=== PATIENT | male | born 1945 | race Caucasian/White ===

== ENCOUNTER 2016-12-20 15:13 | Inpatient (IN) | payer OTHER, MEDICARE ==
--- NOTE | 2016-12-20 15:16 | EDPHY ---
H & P HPI/ROS: HPI CHIEF COMPLAINT: COPD exacerbation, altered mental status HISTORY OF PRESENT ILLNESS: Patient is 71-year-old male, COPD baseline oxygen requirement 2 L at home, for the past few days he has had increasing shortness of breath cough, generalized weakness and worsening confusion. His partner brought him to see his primary care doctor up stairs at [facility]. He was seen by Dr. Chen and referred to the emergency room. Upon arrival to the emergency room this patient is in respiratory distress he is breathing 30-40 times per minute he has a low O2 Sat on 2 L nasal cannula of 79% . He has audible wheezing and audible crackles and rhonchi throughout all lung dove. He appears to be confused and globally weak. He reports generalized weakness and confusion worsening over the past 48-72 hours. His partner at bedside states that he has been sick worse over the past week. Past Medical History: Significant past medical history for COPD, obstructive sleep apnea, history of GI bleed, chronic hyponatremia, depression Past Surgical History: Hip surgery Social History: No use drugs alcohol tobacco products. Family History: Noncontributory ROS REVIEW OF SYSTEMS: A comprehensive 10 point review of systems is otherwise negative aside from elements mentioned in the history of present illness. Exam Constitutional respiratory distress, tachypneic, appears ill, triage nursing summary reviewed, vital signs reviewed, awake/alert. Eyes normal conjunctivae and sclera, EOMI, PERRLA. HENT normal inspection, atraumatic, moist mucus membranes, no epistaxis, neck supple/ no meningismus, no raccoon eyes. Respiratory tachypnea, audible wheezing audible crackles audible rhonchi, respiratory distress Cardiovascular rate normal, regular rhythm, no murmur, no edema, distal pulses normal. Gastrointestinal soft, non-tender, no rebound, no guarding, normal bowel sounds, no distension, no pulsatile mass. Genitourinary no CVA tenderness. Musculoskeletal no midline vertebral tenderness, full range of motion, no calf swelling, no tenderness of extremities, no meningismus, good pulses, neurovascularly intact. Skin pink, warm, & dry, no rash, skin atraumatic. Neurologic awake, alert and oriented x 3, AAOx3, moves all 4 extremities equally, motor intact, sensory intact, CN II-XII intact, normal cerebellar, normal vision, normal speech. Globally weak. Psychiatric normal mood/affect. Heme/Lymph/Immune no lymphadenopathy. 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 ABG. Re-evaluation: ED x-ray chest one view: This shows a prolonged lung dove. Rather right upper lobe large blood. Significant emphysematous changes of the lung. And haziness concerning for pneumonia right upper lobe right middle lobe. Image interpreted myself. 1602: Patient is doing better after DuoNeb breathing treatment IV Solu-Medrol. IV Rocephin, azithromycin, IV fluids has been ordered. Patient getting a continuous 10 mg albuterol neb at this time. Hemodynamically stable. I did speak with Dr. Glass get this time 4:02 p.m.. For admission to [facility]. Patient be admitted to step-down unit/ICU Reason for admission COPD exacerbation, respiratory distress, altered mental status Critical Care: Total Critical Care Time Spent Managing this Patient: 65 Minutes. This time was spent Exclusively with this patient. This Care was exclusive of procedures. The Organ System/life at risk was pulmonary, respiratory distress, COPD exacerbation, hypoxia This Patient was in Critical Condition because respiratory distress, COPD exacerbation, hypoxia 1614: This patient appears to be doing worse. Increasing respiratory rate to 40. Despite breathing treatments and steroids. I have called for an emergent ambulance to bring him by ambulance to [facility] inpatient ICU. I believe he stable enough to go to ICU at [facility]. His partner at bedside consents for this. Consents for transfer to ICU. 1617: [facility] ambulance called this time. Patient is hemodynamically stable awake , talking to me. Still tachypneic. Getting continuous DuoNeb. Current vital signs: Blood pressure 151/98. 94% on 5 L nasal cannula. Heart rate 82. EKG interpretation by me on record in redIT system. Impression time of EKG 16 14 this is sinus rhythm rate of [address] do not appreciate [address] elevation or significant ST depression. 1628: Patient is getting continuous breathing treatment at this time. Resting comfortably. Vital signs stable. 1633: I did re-evaluate the patient at this time. Drink in his breathing treatment this time. Feels okay. Answers my questions appropriately. 1635: [facility] here for transfer. Stable. Transfer to ICU. Of note this patient was aggressively resuscitated here in the emergency room. He received multiple DuoNeb breathing treatments a continuous neb breathing treatments. IV fluid bolus. Broad-spectrum antibiotics. Chest x-ray, blood cultures steroids. He seemed to do okay on a continuous nebulizer. If he did have any worsening symptoms increasing respiratory rate or appear to be impending respiratory failure he would be intubated however he was stable enough to be transferred from [facility] Emergency room to the ICU as a direct admission. Source: Patient - Personal History Tetanus Vaccine Date: 06/22 - Medical/Surgical History Hx Asthma: Yes Hx Chronic Respiratory Disease: Yes Hx Diabetes: No Hx Cardiac Disease: No Hx Renal Disease: No Hx Cirrhosis: No Hx Alcoholism: No Hx HIV/AIDS: No Hx Splenectomy or Spleen Trauma: No Other PMH: med hx-copd. surg- low thyroid, essential tremors - Social History Smoking Status: Current every day smoker Constitutional: Initial Vital Signs Temperature (C) 35.7 C L 12/20/16 15:13 Heart Rate 86 12/20/16 15:13 Respiratory Rate 24 H 12/20/16 15:13 Blood Pressure 157/82 H 12/20/16 15:13 O2 Sat (%) 85 L 12/20/16 15:13 O2 Delivery Mode Nasal Cannula O2 (L/minute) 5 Allergies/Adverse Reactions: venom-wasp [Wasp Venom] Allergy (Unknown, Verified 05/17/14 14:10) Home Medications: Medication Instructions Recorded Aspirin [Aspirin 81mg (*)] 81 mg PO DAILY 09/06/11 Docusate Sodium [Dulcolax Stool 100 mg PO DAILY PRN 09/06/11 Softener] Levothyroxine [Synthroid 75 mcg 75 mcg PO DAILY06 09/06/11 (*)] Propranolol HCl [Inderal 10mg (*)] 10 mg PO DAILY 09/06/11 buPROPion SR [Wellbutrin 150mg SR 300 mg PO DAILY 04/24/13 (*)] Albuterol [Proventil Neb] 3 ml IH Q4 PRN #1 deyvial 01/06/15 Fluticasone/Salmeter 500/50Mcg 1 puffs IH BID #1 disk 03/18/14 [Advair 500/50 (*)] Ipratropium/Albuterol [Combivent 2 inh IH BID PRN 05/17/14 Respimat Inhal Bond(*)] Hydrocodone/APAP 5/325 [[place] 2 tab PO Q4 PRN #30 tab 05/30/14 5/325 (*)] LORazepam [Ativan (*)] 0.5 mg PO Q4 PRN #30 tab 05/30/14 Nicotine [Nicoderm Cq 14 mg (*)] 14 mg TD DAILY #30 patch 05/30/14 Pantoprazole Sodium [Protonix 40mg 40 mg PO DAILY #30 tab 05/30/14 (*)] Phenol/Eucalyptus Oil/Menthol 1 ea PO PRN PRN #30 lozenge 05/30/14 [Cepastat Lozenge] Voriconazole [Vfend 200MG (*)] 200 mg PO BID@1000,2200 #0 tab 05/30/14 Zolpidem Tartrate [Ambien 5MG (*)] 5 - 10 mg PO HS PRN #30 tab 05/30/14 guaiFENesin [Mucinex 600 MG (*)] 1,200 mg PO BID #30 tab.er 05/30/14 predniSONE 60 mg PO DAILY #0 tablet 05/30/14 Medical Decision Making - Data Points Laboratory Results: Laboratory Results 12/20/16 15:40 12/20/16 15:40 Medications Given: Albuterol (Ventolin Hfa Inhaler) 4 puffs IH Q4VENT GWYN Stop: 06/18/17 19:59 Last Admin: 12/21/16 04:35 Dose: 4 puffs Chlorhexidine Gluconate (Peridex) 15 ml PO Q12@08,20 GWYN Stop: 06/18/17 19:59 Last Admin: 12/20/16 21:02 Dose: 15 ml Dexmedetomidine HCl 400 mcg/ (Sodium Chloride) 104 mls @ 0 mls/hr IV CONT GWYN; Per Protocol PRN Reason: Protocol Stop: 06/18/17 17:59 Last Admin: 12/21/16 02:27 Dose: 104 mls Famotidine/Sodium Chloride (Pepcid 20 Mg (Premix)) 50 mls @ 200 mls/hr IV Q12HRS GWYN Stop: 06/18/17 20:59 Last Admin: 12/20/16 21:02 Dose: 50 mls Fentanyl/Sodium Chloride (Fentanyl 10 Mcg/Ml (Premix)) 100 mls @ 0 mls/hr IV CONT GWYN; Per Protocol PRN Reason: Protocol Stop: 12/30/16 17:59 Last Admin: 12/20/16 18:24 Dose: 100 mls Cefepime HCl 1 gm/ Dextrose 50 mls @ 100 mls/hr IV Q12HRS GWYN PRN Reason: Protocol Stop: 01/19/17 20:59 Last Admin: 12/20/16 21:21 Dose: 50 mls Sodium Chloride (Ns) 1,000 mls @ 75 mls/hr IV CONT GWYN Stop: 06/18/17 18:44 Last Admin: 12/21/16 02:27 Dose: 1,000 mls Ipratropium [place] (Atrovent Hfa) 4 puffs IH Q4VENT GWYN Stop: 06/18/17 19:59 Last Admin: 12/21/16 04:35 Dose: 4 puffs Methylprednisolone Sodium Succinate (Solu-Medrol) 60 mg IVP Q8HRS GWYN Stop: 06/18/17 21:59 Last Admin: 12/21/16 05:31 Dose: 60 mg Discontinued Medications Albuterol (Proventil Neb) 12 ml IH CONT ONE Stop: 12/20/16 15:36 Last Admin: 12/20/16 15:37 Dose: 12 ml Albuterol (Proventil Neb) 9 ml IH ONCE ONE Stop: 12/20/16 16:25 Last Admin: 12/20/16 16:26 Dose: 9 ml Albuterol/Ipratropium (Duoneb) 3 ml IH EDNOW ONE Stop: 12/20/16 15:25 Last Admin: 12/20/16 15:25 Dose: 3 ml Fentanyl (Sublimaze) 100 mcg IVP ONCE ONE Stop: 12/20/16 18:16 Last Admin: 12/20/16 18:23 Dose: 100 mcg Sodium Chloride (Ns) 1,000 mls @ 0 mls/hr IV EDNOW ONE; Wide Open PRN Reason: Protocol Stop: 12/20/16 15:23 Last Admin: 12/20/16 15:39 Dose: 1,000 mls Azithromycin 500 mg/ Dextrose 255 mls @ 255 mls/hr IV EDNOW ONE PRN Reason: Protocol Stop: 12/20/16 16:52 Last Admin: 12/20/16 20:02 Dose: 255 mls Ceftriaxone Sodium/Dextrose (Rocephin 1 Gm (Premix)) 50 mls @ 100 mls/hr IV EDNOW ONE PRN Reason: Protocol Stop: 12/20/16 16:22 Last Admin: 12/20/16 16:17 Dose: 50 mls Sodium Chloride (Ns) 1,000 mls @ 3,000 mls/hr IV ONCE ONE Stop: 12/20/16 19:01 Last Admin: 12/20/16 19:18 Dose: 1,000 mls Ipratropium [place] (Atrovent Hfa) 4 puffs IH Q4H GWYN Stop: 06/18/17 18:29 Last Admin: 12/20/16 18:49 Dose: Not Given Methylprednisolone Sodium Succinate (Solu-Medrol) 125 mg IVP EDNOW ONE Stop: 12/20/16 15:25 Last Admin: 12/20/16 15:39 Dose: 125 mg Midazolam HCl (Versed) 2 mg IVP ONCE ONE Stop: 12/20/16 18:16 Last Admin: 12/20/16 18:23 Dose: 2 mg Departure - Departure Disposition: [facility] Inpatient Acute Clinical Impression: COPD exacerbation, Hypoxia, Respiratory distress Pneumonia Qualifiers: Pneumonia type: due to unspecified organism Laterality: right Lung location: middle lobe of lung Qualified Code(s): J18.1 - Lobar pneumonia, unspecified organism Respiratory failure Qualifiers: Chronicity: acute Condition: Critical
[2016-12-20] MEDS ORDERED: IPRATROPIUM/ALBUTEROL 3 ML DEYVIAL ONE (15:20)
[2016-12-20] MEDS ORDERED: NS 1,000 ML IV ONE ×2 (15:22→18:42)
[2016-12-20] MEDS ORDERED: IPRATROPIUM/ALBUTEROL 3 ML DEYVIAL IH ONE (15:24)
[2016-12-20] MEDS ORDERED: methylPREDNISolone SOD SUCC 125 MG/2 ML VIAL IVP ONE (15:24)
[2016-12-20] MEDS ORDERED: ALBUTEROL 3 ML DEYVIAL ONE ×2 (15:33→16:21)
[2016-12-20] MEDS ORDERED: ALBUTEROL 3 ML DEYVIAL IH ONE ×2 (15:35→16:24)
[2016-12-20 15:50] LABS: % IMMATURE GRANULYOCYTES 0.6 % (0.0-1.1); ABSOLUTE IMMATURE GRANULOCYTES 0.07 10^3/uL (0.00-0.10); ADD DIFF? NO; ADD MORPH? NO; ADD SCAN? NO; ATYPICAL LYMPHOCYTE FLAG 0 (0-99); FRAGMENT RBC FLAG 0 (0-99); HEMATOCRIT 46.2 % (40.0-51.0); HEMOGLOBIN 14.5 g/dL (13.7-17.5); LEFT SHIFT FLG 0 (0-99); LIPEMIA HEMOLYSIS FLAG 80 (0-99); MEAN CELL HEMOGLOBIN 28.2 pg (27.9-34.1); MEAN CELL HEMOGLOBIN CONCENTR. 31.4 g/dL (32.4-36.7); MEAN CELL VOLUME 89.7 fL (81.5-99.8); MEAN PLATELET VOLUME 9.9 fL (8.7-11.7); PLATELET CLUMPS FLAG 0 (0-99); PLATELET COUNT 207 10^3/uL (150-400); RED BLOOD CELL COUNT 5.15 10^6/uL (4.40-6.38); RED CELL DISTRIBUTION WIDTH 15.9 % (11.5-15.2)
[2016-12-20] MEDS ORDERED: AZITHROMYCIN IV 500 MG in D5W 250 ML IV ONE (15:53)
[2016-12-20 16:01] LABS: INR 1.05 (0.83-1.16); PROTIME(PATIENT) 13.4 SEC (12.0-15.0)
[2016-12-20 16:02] LABS: APTT 27.9 SEC (23.0-38.0)
[2016-12-20 16:07] LABS: ALANINE AMINOTRANSFERASE 37 IU/L (21-72); ALKALINE PHOSPHATASE 60 IU/L (38-126); ASPARTATE AMINOTRANSFERASE 17 IU/L (17-59); BILIRUBIN,TOTAL 1.1 mg/dL (0.1-1.4); BILIRUBIN-CONJUGATED 0.4 mg/dL (0.0-0.5); BILIRUBIN-UNCONJUGATED 0.7 mg/dL (0.0-1.1); CHLORIDE 82 mEq/L (97-110); CREATININE 0.5 mg/dL (0.7-1.3); GLOMERULAR FILTRATION RATE > 60; GLUCOSE 134 mg/dL (70-100); MAGNESIUM 1.9 mg/dL (1.6-2.3); POTASSIUM 5.3 mEq/L (3.5-5.2); SODIUM 135 mEq/L (134-144); TOTAL PROTEIN 6.6 g/dL (6.3-8.2)
[2016-12-20 16:13] LABS: CREATINE KINASE-MB FRACTION 3.57 ng/mL (0.00-4.55)
[2016-12-20 16:20] LABS: ANION GAP 11 mEq/L (8-16); CARBON DIOXIDE 42 mEq/l (22-31)
[2016-12-20] MEDS ORDERED: AZITHROMYCIN 500 MG/5 ML VIAL IV ONE (16:21)
[2016-12-20] MEDS ORDERED: fentaNYL 100 MCG/2 ML INJ ONE (17:22)
[2016-12-20] MEDS ORDERED: MIDAZOLAM 2 MG/2 ML VIAL ONE (17:22)
[2016-12-20] MEDS ORDERED: ALTEPLASE 2 MG VIAL IVP PRN (18:09)
[2016-12-20] MEDS ORDERED: fentaNYL 100 MCG/2 ML INJ IVP ONE (18:15)
[2016-12-20] MEDS ORDERED: MIDAZOLAM 2 MG/2 ML VIAL IVP ONE (18:15)
[2016-12-20] MEDS: fentaNYL/NACL 100 ML IV SCH (18:24)
[2016-12-20] MEDS: DEXMEDETOMIDINE HCL 400 MCG in NS 100 ML IV SCH (18:24)
[2016-12-20] MEDS ORDERED: IPRATROPIUM HFA INHALER IH SCH (18:30)
[2016-12-20] MEDS ORDERED: ONDANSETRON 4 MG/2 ML VIAL IVP PRN (18:42)
--- NOTE | 2016-12-20 18:49 | GCON ---
[f rep st] CONSULTATION PULMONARY/CRITICAL CARE CONSULTATION DATE OF CONSULTATION: 12/20/2016 REFERRING PHYSICIAN: Antonio Chen MD REASON FOR REFERRAL: Evaluation and management of confusion and respiratory failure. HISTORY: The patient is a 71-year-old male with a history of severe COPD and ongoing tobacco use. He has been followed by Dr. Burns at [facility]. He has apparently been declining recently, with generalized weakness , for which physical therapy had recently been prescribed. He saw Dr. Chen today in the office with increased shortness of breath and cough since December 16. He woke up today and was more confused. He had been started on prednisone and Cipro a few days earlier by his hybrid tester. He was quite weak and confused as well as short of breath when he saw Dr. Chen today, so he was [place] [facility] [place] they [place], were unable to get a blood gas, and transferred him to the intensive care unit here. At the time I see him, he is minimally responsive and is not moving air very well. With the use of BiPAP, he is a bit more interactive but he is still not able to reliably answer questions. PAST MEDICAL HISTORY: 1. COPD, severe. Patient apparently had an FEV1 of 23% of predicted on testing done at the [facility]. 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 He is on chronic oxygen as well as ICS/LAMA/LABA therapy. I do not see any mention of recent hospitalizations in his chart, and he has no recent hospitalizations here at [facility]. 2. History of cerebral infarct in 2012. MEDICATIONS: At the time of admission, include Advair, omeprazole, prednisone, trazodone, Zoloft, Singulair, Combivent and Spiriva. ALLERGIES: Bactrim. SOCIAL HISTORY: The patient has a prior history of alcohol use. He has a long history of smoking and continues to smoke 5 cigarettes daily. FAMILY HISTORY: Unknown. REVIEW OF SYSTEMS: Unobtainable. PHYSICAL EXAMINATION: GENERAL: The patient is somnolent, but arousable. He follows some simple commands, but is also agitated at times, fidgeting with his mask. VITAL SIGNS: Blood pressure is 150/98, heart rate is 84, he is afebrile. Oxygen saturations are 98% on BiPAP with 30% BiPAP. HEENT: Normocephalic, atraumatic. No icterus. NECK: No JVD. Trachea is midline. CHEST: Decreased breath sounds bilaterally. CARDIAC: Regular rate and rhythm without murmur. ABDOMEN: Soft, nontender. Bowel sounds are present. EXTREMITIES: No clubbing, cyanosis, or edema. NEURO: The patient is confused and disoriented. He moves all 4 extremities with no gross motor weakness. LABORATORY: A white blood count is 11.9, with a hemoglobin of 14.5, platelet count is 207. A chemistry group shows a sodium 135 with a potassium of 5.3, carbon dioxide level is 42; this was in the 20s on his last check in 2016. A creatinine is 0.5, BNP is 301. An arterial blood gas shows a pH of 7.27, PO2 223, PCO2 88, HCO3 39. IMAGING: A chest x-ray shows chronic changes and biapical severe bullous disease with tracheal deviation to the right and some fibrosis in the right upper lobe. These are essentially unchanged from prior chest x-rays. Images were reviewed. ASSESSMENT: 1. Chronic obstructive pulmonary disease exacerbation. The patient likely has acute on chronic hypoxemic respiratory failure with a markedly elevated bicarbonate level. We have been unable to get an arterial blood gas. The patient is somnolent and is moving air very poorly, with increased but fairly ineffectual respiratory efforts, despite the use of BiPAP. I think he will require intubation and mechanical ventilation. The cause of his exacerbation is unclear. He does not have any discrete focal infiltrates or evidence of congestive heart failure. He apparently did not give a history of fever to Dr. Chen. Nonetheless, acute viral or bacterial bronchitis, influenza or pneumonia are all possibilities. He is at some risk for resistant organisms, given his chronic lung disease, but it does not appear that he has had anything more than Keflex for an antibiotic recently, until he just got Cipro over the last few days. 2. Severe chronic obstructive pulmonary disease. 3. Ongoing tobacco abuse. RECOMMENDATIONS: Plan to intubate the patient. I will attempt to obtain cultures. Also, get blood cultures. He apparently received ceftriaxone and azithromycin, and I will change the ceftriaxone to cefepime. A PICC line will be placed. I will try to use Precedex and fentanyl for sedation in order to help allow us to wean and extubate as quickly as possible. /[id number]/MODL MTDD
--- NOTE | 2016-12-20 19:24 | GHP ---
[f rep st] HISTORY AND PHYSICAL DATE OF ADMISSION: 12/20/2016 CHIEF COMPLAINT: Shortness of breath. HISTORY OF PRESENT ILLNESS: This is a 71-year-old man who presented with shortness of breath. He is accompanied by his partner, who provides most of the history. He is intubated when I am seeing him. He saw Dr. Chen today. He has had some increased confusion and shortness of breath. Dr. Chen sent him down to urgent care. Per his partner, he has chronic COPD, 2 L. he has been doing actually fairly well, although his PFTs, per report, were worse 3 weeks ago. Over the weekend, he got a cold that has infected other people in the house, including upper respiratory symptoms. Over the weekend, he got very dyspneic as well. He was started on prednisone and Cipro. He chronically takes Keflex 500 mg p.o. b.i.d. He got worse over the weekend, thus presented to Dr. Chen. He follows with Dr. Burns at the [facility] for pulmonology. PAST MEDICAL/SURGICAL HISTORY: 1. COPD, on 2 L chronically. He continues to smoke. 2. Chronic respiratory failure. 3. Stroke. 4. History of alcohol abuse, now in remission. 5. Chronic hyponatremia. 6. Obstructive sleep apnea. 7. GI bleed. 8. Depression. 9. Hypothyroid. 10. Right hip surgery. 11. Cataract surgery. MEDICATIONS: Please see medication reconciliation. ALLERGIES: Venom, wasp. FAMILY HISTORY: Per chart, father had a stroke. SOCIAL HISTORY: His partner is present. He still smokes. He does not drink. REVIEW OF SYSTEMS: A 10-point review of systems is conducted and is negative, except per HPI. PHYSICAL EXAM: VITAL SIGNS: Initial blood pressure 153/79, heart rate 81, respiration rate 32, saturating 98% on 5 L. GENERAL: The patient is intubated , sedated. HEENT: Shows him to have an ET tube in place. CARDIOVASCULAR: Shows him to be borderline tachycardic. There are no murmurs, rubs, or gallops. PULMONARY: Exam shows very faint lung sounds. ABDOMEN: Soft, nontender, nondistended. He does not grimace. SKIN: Exam shows no rash. : No Coker. NEUROLOGIC: Exam shows him to be intubated and sedated. PSYCHIATRIC: Exam is unobtainable. LABS: White count is 1.8. INR is 1.0. Lactate is 1.2. Chemistry shows a potassium of 5.3, chloride of 82, bicarb of 42. Creatinine is 0.5. BNP is 301. DATA: 1. Chest x-ray, which I personally viewed and interpreted, shows an ET tube in place. 2. I discussed this with Dr. Jacob. 3. I reviewed his chart. IMPRESSION/PLAN: A 71-year-old critically ill man due to respiratory failure. 1. Acute on chronic hypoxic/hypercapnic respiratory failure: Currently intubated. ABG will be drawn in about 10 minutes. Will need to adjust ventilator settings based on this. I suspect that this is due to a COPD exacerbation. He will get antibiotics for now. Procalcitonin is pending. He will also get steroids and bronchodilators. 2. Hypotension: This was quite acute post intubation. Per nurse, this improved with disconnecting his ventilator tubes, are considering breath stacking. We will follow closely. Will need to rely on Pulmonology for ventilation strategies in this complex man. 3. Hyperkalemia: This is mild. Will follow. 4. Mild leukocytosis. 5. Tobacco use: He will need to be counseled on cessation. 6. Hypothyroid, on Synthroid. 7. Venous thromboembolism risk is high. I will give him Lovenox. I spent 45 minutes of floor critical care time managing respiratory failure /[id number]/MODL MTDD
[2016-12-20 19:48] LABS: BICARBONATE 39 mEq/L (22-26); MEASURED OXYGEN SATURATION 99 % (92-95); PO2 223 mmHg (65-75)
[2016-12-20 19:51] LABS: TCO2 41 mEq/L (23-27)
[2016-12-20 19:53] LABS: PCO2 88 mmHg (34-38)
[2016-12-20 19:54] LABS: SIMV YES
[2016-12-20 19:55] LABS: PATIENT RATE 12; PRESSURE SUPPORT 7
[2016-12-20 19:56] LABS: END TIDAL CO2 57
[2016-12-20] MEDS: NS 1,000 ML IV SCH (20:38)
[2016-12-20] MEDS: IPRATROPIUM HFA INHALER IH SCH (20:41)
[2016-12-20] MEDS: ALBUTEROL 200 PUFFS/18 GM MDI IH SCH (20:42)
[2016-12-20] MEDS: CHLORHEXIDINE GLUCONATE 15 ML UDL PO SCH (21:02)
[2016-12-20] MEDS: FAMOTIDINE 20 MG/NACL 50 ML IV SCH (21:02)
[2016-12-20] MEDS: methylPREDNISolone SOD SUCC 125 MG/2 ML VIAL IVP SCH (21:04)
[2016-12-20] MEDS: CEFEPIME HCL 1 GM in D5W 50 ML IV SCH (21:21)
[2016-12-21] MEDS: ALBUTEROL 200 PUFFS/18 GM MDI IH SCH ×6 (00:29→19:55)
[2016-12-21] MEDS: IPRATROPIUM HFA INHALER IH SCH ×6 (00:30→19:55)
[2016-12-21] MEDS: DEXMEDETOMIDINE HCL 400 MCG in NS 100 ML IV SCH ×3 (02:27→19:39)
[2016-12-21] MEDS: NS 1,000 ML IV SCH ×2 (02:27→16:28)
[2016-12-21 05:24] LABS: BASE EXCESS 9.9 mEq/L (-2.5-2.5); BICARBONATE 36 mEq/L (22-26); MEASURED OXYGEN SATURATION 95 % (92-95); PCO2 58 mmHg (34-38); PO2 72 mmHg (65-75); TCO2 38 mEq/L (23-27)
[2016-12-21 05:30] LABS: ASSIST CONTROL YES; END TIDAL CO2 45; O2 CONCENTRATIION 40 % (0-100); P/F RATIO 180 RATIO; TOTAL RATE 16
[2016-12-21] MEDS: methylPREDNISolone SOD SUCC 125 MG/2 ML VIAL IVP SCH ×3 (05:31→21:35)
[2016-12-21 05:41] LABS: % IMMATURE GRANULYOCYTES 0.3 % (0.0-1.1); ABSOLUTE IMMATURE GRANULOCYTES 0.02 10^3/uL (0.00-0.10); ADD DIFF? NO; ADD MORPH? NO; ADD SCAN? NO; ATYPICAL LYMPHOCYTE FLAG 0 (0-99); FRAGMENT RBC FLAG 0 (0-99); HEMATOCRIT 36.3 % (40.0-51.0); HEMOGLOBIN 11.7 g/dL (13.7-17.5); LEFT SHIFT FLG 0 (0-99); LIPEMIA HEMOLYSIS FLAG 80 (0-99); MEAN CELL HEMOGLOBIN CONCENTR. 32.2 g/dL (32.4-36.7); MEAN CELL VOLUME 90.1 fL (81.5-99.8); PLATELET CLUMPS FLAG 0 (0-99); PLATELET COUNT 123 10^3/uL (150-400); RED BLOOD CELL COUNT 4.03 10^6/uL (4.40-6.38); RED CELL DISTRIBUTION WIDTH 15.5 % (11.5-15.2)
[2016-12-21 05:46] LABS: ALANINE AMINOTRANSFERASE 28 IU/L (21-72); ALBUMIN 2.7 g/dL (3.5-5.0); ALKALINE PHOSPHATASE 44 IU/L (38-126); ANION GAP 3 mEq/L (8-16); ASPARTATE AMINOTRANSFERASE 13 IU/L (17-59); BILIRUBIN,TOTAL 0.5 mg/dL (0.1-1.4); CALCIUM 8.5 mg/dL (8.5-10.4); CARBON DIOXIDE 38 mEq/l (22-31); CHLORIDE 89 mEq/L (97-110); CREATININE 0.8 mg/dL (0.7-1.3); GLOMERULAR FILTRATION RATE > 60; GLUCOSE 124 mg/dL (70-100); SODIUM 130 mEq/L (134-144)
[2016-12-21] MEDS: CEFEPIME HCL 1 GM in D5W 50 ML IV SCH ×2 (09:08→21:42)
[2016-12-21] MEDS: ENOXAPARIN 40 MG/0.4 ML SYR SC SCH (09:08)
[2016-12-21] MEDS: FAMOTIDINE 20 MG/NACL 50 ML IV SCH ×2 (09:08→20:40)
--- NOTE | 2016-12-21 09:16 | HOSPPROG ---
Hospitalist Progress Note Assessment/Plan: Acute on chronic hypoxemic and hypercarbic respiratory failure in setting of bullous emphysema - On vent, respiratory pathogen panel pending. PAULINE noted. -cont atrovent, albuterol, steroids, vent support -doubt PNA with PCT 0.03. can likely dc atbx -wean vent as able Hyponatremia - mild Hypothyroidism - cont levothyroxine when taking po Depression - cont wellbutrin when taking po, med rec pending Tobacco abuse - encourage cessation Full code Dispo - cont inpt, ICU Subjective: Pt intubated, sedated on vent Objective: Vital Signs Temp Pulse Resp BP Pulse Ox 36.9 C 60 16 108/72 94 12/21/16 08:00 12/21/16 09:00 12/21/16 09:00 12/21/16 09:00 12/21/16 09:00 Laboratory Results 12/21/16 05:15 12/21/16 05:15 12/20/16 12/21/16 12/22/16 05:59 05:59 05:59 Intake Total 3749 Output Total 700 Balance 3049 PT 13.4 SEC (12.0-15.0) 12/20/16 15:40 INR 1.05 (0.83-1.16) 12/20/16 15:40 - Physical Exam Constitutional: no apparent distress Eyes: PERRL Ears, Nose, Mouth, Throat: moist mucous membranes Cardiovascular: regular rate and rhythym Respiratory: no respiratory distress, reduced air movement Neurologic: other (sedated on vent) ICD10 Worksheet Patient Problems: Problems Problem Status Onset COPD exacerbation Acute Hypoxia Acute Pneumonia Acute Respiratory distress Acute Respiratory failure Acute Acute respiratory failure Acute
[2016-12-21] MEDS: CHLORHEXIDINE GLUCONATE 15 ML UDL PO SCH ×2 (09:30→19:39)
--- NOTE | 2016-12-21 09:52 | PDINTPN ---
[employer] Progress Note Assessment/Plan: Assessment: Acute on Chronic hypercapneic respiratory failure: S/P intubation/mechanical ventilation. CO2 now down, may be at his baseline. No signs of infection, with normal WBC, procalcitonin, and afebrile. No signs CHF. COPD exacerbation; Doing well on vent. Tobacco abuse: Smokes 4-5 cigarettes/day. Plan: Start to wean ventilator, but probably won't extubate today. Continue solumedrol. Will D/C Cefepime if sputum Cx remains negative. D/W Dr. Allison, RN, RT, patient's partner. 12/21/16 10:00 12/21/16 10:01 Subjective: Intubated, sedated, responds to voice, nods appropriately. Objective: Vital Signs Temp Pulse Resp BP Pulse Ox 36.9 C 62 19 108/72 95 12/21/16 08:00 12/21/16 09:09 12/21/16 09:09 12/21/16 09:00 12/21/16 09:09 Microbiology 12/20/16 17:45 - Final Sputum, Induced/Suctioned Laboratory Results 12/21/16 05:15 12/21/16 05:15 12/20/16 12/21/16 12/22/16 05:59 05:59 05:59 Intake Total 3749 Output Total 700 Balance 3049 PT 13.4 SEC (12.0-15.0) 12/20/16 15:40 INR 1.05 (0.83-1.16) 12/20/16 15:40 CXR: Bullous emphysema with RUL fibrosis. Unchanged. IMages reviewed. Laboratory Tests 12/21/16 05:15 pCO2 58 H pO2 72 Total CO2 38 H ABG pH 7.41 O2 Concentration % 40 Respiration Rate 16 Tidal Volume 550 Physical Exam - Physical Exam General Appearance: alert, no apparent distress EENT: normal ENT inspection Neck: normal inspection Respiratory: lungs clear, normal breath sounds Cardiac/Chest: regular rate, rhythm, edema Abdomen: normal bowel sounds, non-tender Extremities: normal range of motion, non-tender Neuro/Psych: alert, normal mood/affect, oriented x 3 ICD10 Worksheet Patient Problems: Problems Problem Status Onset COPD exacerbation Acute Hypoxia Acute Pneumonia Acute Respiratory distress Acute Respiratory failure Acute Acute respiratory failure Acute
--- NOTE | 2016-12-21 10:55 | PDMN ---
Medical Necessity Medical necessity: est los >2 mn for acute on chronic hypoxic/hypercapnic resp fail r/t COPD exacerbation, hypotension; admitted to ICU & intubated, Precedex, IV abx & steroids, Fentanyl gtt; comorbid COPD, resp fail; per H&P & order 12/20
[2016-12-21] MEDS: NICOTINE 14 MG/24 HR PATCH TD SCH (11:08)
--- NOTE | 2016-12-21 11:37 | GPN ---
[f rep st] PROCEDURE NOTE DATE OF PROCEDURE: 12/20/2016 PROCEDURE PERFORMED: Flexible fiberoptic bronchoscopy. REASON FOR PROCEDURE: Respiratory failure with possible retained secretions. DESCRIPTION OF PROCEDURE: The risks and benefits of the procedure were explained to the patient, who gave verbal consent to proceed. The entire procedure was performed in the intensive care unit with the patient under blood pressure, EKG, and oximetry monitoring. It was my assessment that there was no risk of airborne infection from the procedure. After an appropriate time-out, a bite block was pl aced between the patient's teeth, a topical anesthetic was sprayed into the patient's oropharynx, and the bronchoscope was advanced through the bite block into the vocal cords. The bronchoscope was adv anced quickly through the vocal cords into the main trachea. An 8.0 endotracheal tube was advanced o herber the bronchoscope and was secured in position. The bronchoscope was removed and the patient was b agged. The bronchoscope was then reintroduced into the airways, where I encountered a small-moderate amount of thin mucopurulent secretions which were easily suctioned. These were seen bilaterally. T here were no occlusive plugs. There were no endobronchial lesions and the bronchial mucosa was estee l in appearance. Washings were taken, with return of slightly cloudy fluid. The patient received 2 mg of Versed 100 mcg of fentanyl intravenously for analgesia and sedation. There were no complicatio ns apparent at the end of the procedure. The specimen was sent for Gram stain, culture, and respirat ory pathogen studies. There was no blood loss. The patient's oxygen saturations and vital signs wer e stable throughout the procedure. /[id number]/MODL
--- NOTE | 2016-12-21 11:38 | ASMTCMCOM ---
CM Note CM Note Notes: Patient admitted for acute on chronic hypoxemic and hypercarbic respiratory failure. He has a hx of COPD and is on 2L O2 at home. He lives independently with his partner Moses. Patient is currently intubated/sedated, will begin to wean today. He does not have any therapy evals ordered, so I don't anticipate any CM discharge needs, but we are available if things change. Date Signed: 12/21/2016 11:37 AM Electronically Signed By:Mercedes Walker RN
[2016-12-21] MEDS ORDERED: SODIUM BICARBONATE 50 MEQ/50 ML SYR IVP ONE (14:30)
[2016-12-21] MEDS: fentaNYL/NACL 100 ML IV SCH (17:05)
[2016-12-22] MEDS: IPRATROPIUM HFA INHALER IH SCH ×5 (00:17→16:20)
[2016-12-22] MEDS: ALBUTEROL 200 PUFFS/18 GM MDI IH SCH ×3 (00:17→08:57)
[2016-12-22 03:48] LABS: ANION GAP 3 mEq/L (8-16); CALCIUM 7.7 mg/dL (8.5-10.4); CARBON DIOXIDE 33 mEq/l (22-31); CHLORIDE 97 mEq/L (97-110); CREATININE 0.6 mg/dL (0.7-1.3); GLOMERULAR FILTRATION RATE > 60; GLUCOSE 123 mg/dL (70-100); POTASSIUM 3.8 mEq/L (3.5-5.2); SODIUM 133 mEq/L (134-144)
[2016-12-22 05:47] LABS: BASE EXCESS 8.2 mEq/L (-2.5-2.5); BICARBONATE 34 mEq/L (22-26); BIPAP YES; EXP PRESSURE 7; INSP PRESSURE 17; MEASURED OXYGEN SATURATION 97 % (92-95); O2 CONCENTRATIION 40 % (0-100); P/F RATIO 198 RATIO; PCO2 47 mmHg (34-38); PO2 79 mmHg (65-75); TCO2 36 mEq/L (23-27)
[2016-12-22] MEDS: methylPREDNISolone SOD SUCC 125 MG/2 ML VIAL IVP SCH ×3 (06:09→20:57)
[2016-12-22] MEDS: NICOTINE 14 MG/24 HR PATCH TD SCH (09:38)
[2016-12-22] MEDS: ENOXAPARIN 40 MG/0.4 ML SYR SC SCH (09:38)
[2016-12-22] MEDS: CHLORHEXIDINE GLUCONATE 15 ML UDL PO SCH (09:38)
[2016-12-22] MEDS: FAMOTIDINE 20 MG/NACL 50 ML IV SCH (09:38)
[2016-12-22] MEDS: CEFEPIME HCL 1 GM in D5W 50 ML IV SCH (09:38)
--- NOTE | 2016-12-22 10:03 | PDINTPN ---
Payroll Benefits Administrator Progress Note Assessment/Plan: Assessment: Acute on Chronic hypercapneic respiratory failure: S/P intubation/mechanical ventilation. CO2 now down, may be at his baseline. Extubated last night due to cuff leak. Doing OK with FM O2 alternating with BiPAP PRN. No signs of infection , with normal WBC, procalcitonin, and afebrile. No signs CHF. COPD exacerbation; Extubated. Tobacco abuse: Smokes 4-5 cigarettes/day. Plan: Contineu BiPAP PRN. Resume Advair/Spiriva. Continue solumedrol. D/C Cefepime. Can probably transfer to M/S today if doing well. PT/OT/ST D/W Dr. Allison, RN, RT, patient's partner. 12/22/16 11:01 Subjective: Feels breathing is better, but still quite tight. Denies pain. Appetite starting to return Objective: Vital Signs Temp Pulse Resp BP Pulse Ox 37.2 C 84 28 H 140/70 H 96 12/21/16 19:00 12/22/16 06:00 12/22/16 06:00 12/22/16 06:00 12/22/16 06:00 Microbiology 12/20/16 17:45 - Final Sputum, Induced/Suctioned 12/20/16 17:45 Respiratory Panel (PCR) - Final Unspecified Human Rhinovirus/Enterovirus Laboratory Results 12/21/16 05:15 12/22/16 03:05 12/21/16 12/22/16 12/23/16 05:59 05:59 05:59 Intake Total 3749 1981 Output Total 700 1000 Balance 3049 981 PT 13.4 SEC (12.0-15.0) 12/20/16 15:40 INR 1.05 (0.83-1.16) 12/20/16 15:40 Microbiology 12/20/16 17:45 Sputum, Induced/Suctioned - Final 12/20/16 17:45 Sputum, Induced/Suctioned Sputum Culture - Preliminary Toña Albicans Presumptive Laboratory Tests 12/22/16 05:36 ABG pH 7.46 H ABG HCO3 34 H ABG O2 Saturation 97 H O2 Concentration % 40 Expiratory Pressure 7 Inspiratory Pressure 17 Mode BiPAP YES Physical Exam - Physical Exam General Appearance: alert, no apparent distress EENT: normal ENT inspection Neck: normal inspection Respiratory: normal breath sounds Cardiac/Chest: regular rate, rhythm, No edema Abdomen: normal bowel sounds, non-tender Skin: normal color, warm/dry Extremities: normal inspection Neuro/Psych: alert, normal mood/affect, oriented x 3 ICD10 Worksheet Patient Problems: Problems Problem Status Onset COPD exacerbation Acute Hypoxia Acute Pneumonia Acute Respiratory distress Acute Respiratory failure Acute Acute respiratory failure Acute
[2016-12-22] MEDS: FLUTICASONE/SALMETER 500/50MCG DISKUS IH SCH ×2 (11:25→20:48)
[2016-12-22] MEDS: TIOTROPIUM INHALER 18 MCG/DOSE 5 DOSE/MDI IH SCH (11:27)
[2016-12-22] MEDS: ALBUTEROL 3 ML DEYVIAL IH SCH ×3 (16:20→21:04)
--- NOTE | 2016-12-22 17:06 | HOSPPROG ---
Hospitalist Progress Note Assessment/Plan: Acute on chronic hypoxemic and hypercarbic respiratory failure in setting of bullous emphysema, viral URI and PAULINE - extubated last night, stable this am. -cont spiriva, advair, albuterol -begin to wean steroids tomorrow, can likely change to po prednisone -add guaifenesin -doubt PNA with PCT 0.03, d/c atbx Hyponatremia - mild, follow Hypothyroidism - cont levothyroxine Depression - cont wellbutrin Tobacco abuse - encourage cessation Full code Dispo - cont inpt, likely transfer to med surg tomorrow Subjective: Pt feels better, though still coughing and getting sweats / chills. No CP. Breathing is improved. No fevers. Tolerating po. Objective: Vital Signs Temp Pulse Resp BP Pulse Ox 36.6 C 114 H 20 133/72 H 91 L 12/22/16 08:00 12/22/16 16:00 12/22/16 16:00 12/22/16 16:00 12/22/16 16:00 Microbiology 12/20/16 17:45 - Final Sputum, Induced/Suctioned 12/20/16 17:45 Respiratory Panel (PCR) - Final Unspecified Human Rhinovirus/Enterovirus Laboratory Results 12/21/16 05:15 12/22/16 03:05 12/21/16 12/22/16 12/23/16 05:59 05:59 05:59 Intake Total 3749 1981 Output Total 700 1000 Balance 3049 981 PT 13.4 SEC (12.0-15.0) 12/20/16 15:40 INR 1.05 (0.83-1.16) 12/20/16 15:40 - Physical Exam Constitutional: no apparent distress Eyes: PERRL Ears, Nose, Mouth, Throat: moist mucous membranes Cardiovascular: regular rate and rhythym Respiratory: no respiratory distress, reduced air movement, expiratory wheeze Gastrointestinal: normoactive bowel sounds, soft, non-tender abdomen Skin: warm Musculoskeletal: full muscle strength Neurologic: AAOx3 Psychiatric: interacting appropriately ICD10 Worksheet Patient Problems: Problems Problem Status Onset COPD exacerbation Acute Hypoxia Acute Pneumonia Acute Respiratory distress Acute Respiratory failure Acute Acute respiratory failure Acute
[2016-12-22] MEDS: guaiFENesin 600 MG TAB.ER PO SCH (20:47)
[2016-12-22] MEDS: FAMOTIDINE 20 MG TAB PO SCH (20:48)
[2016-12-22] MEDS: traZODone 100 MG TAB PO SCH (20:48)
[2016-12-23] MEDS: ALBUTEROL 3 ML DEYVIAL IH SCH ×4 (01:40→13:13)
[2016-12-23 05:40] LABS: HEMATOCRIT 36.2 % (40.0-51.0); HEMOGLOBIN 11.4 g/dL (13.7-17.5); MEAN CELL HEMOGLOBIN 28.5 pg (27.9-34.1); MEAN CELL HEMOGLOBIN CONCENTR. 31.5 g/dL (32.4-36.7); MEAN CELL VOLUME 90.5 fL (81.5-99.8); RED CELL DISTRIBUTION WIDTH 15.8 % (11.5-15.2)
[2016-12-23] MEDS: methylPREDNISolone SOD SUCC 125 MG/2 ML VIAL IVP SCH (05:44)
[2016-12-23] MEDS: LEVOTHYROXINE 75 MCG TAB PO SCH (05:44)
[2016-12-23 06:12] LABS: ANION GAP 5 mEq/L (8-16); CALCIUM 8.3 mg/dL (8.5-10.4); CARBON DIOXIDE 36 mEq/l (22-31); CHLORIDE 96 mEq/L (97-110); CREATININE 0.6 mg/dL (0.7-1.3); GLOMERULAR FILTRATION RATE > 60; GLUCOSE 132 mg/dL (70-100); POTASSIUM 4.5 mEq/L (3.5-5.2); SODIUM 137 mEq/L (134-144)
[2016-12-23] MEDS: guaiFENesin 600 MG TAB.ER PO SCH ×2 (08:51→20:14)
[2016-12-23] MEDS: PANTOPRAZOLE SODIUM 40 MG TAB PO SCH (08:51)
[2016-12-23] MEDS: CEPHALEXIN 500 MG CAP PO SCH (08:51)
[2016-12-23] MEDS: FAMOTIDINE 20 MG TAB PO SCH ×2 (08:51→20:14)
[2016-12-23] MEDS: SERTRALINE HCL 50 MG TAB PO SCH (08:51)
[2016-12-23] MEDS: NICOTINE 14 MG/24 HR PATCH TD SCH (08:52)
[2016-12-23] MEDS: ENOXAPARIN 40 MG/0.4 ML SYR SC SCH (08:52)
[2016-12-23] MEDS: TIOTROPIUM INHALER 18 MCG/DOSE 5 DOSE/MDI IH SCH (09:14)
[2016-12-23] MEDS: FLUTICASONE/SALMETER 500/50MCG DISKUS IH SCH ×2 (09:15→19:51)
[2016-12-23] MEDS ORDERED: IPRATROPIUM/ALBUTEROL 3 ML DEYVIAL IH SCH (14:48)
[2016-12-23] MEDS ORDERED: BISACODYL 10 MG SUPP PR PRN (14:49)
[2016-12-23] MEDS ORDERED: ALBUTEROL 3 ML DEYVIAL IH PRN (14:49)
[2016-12-23] MEDS ORDERED: MAGNESIUM HYDROXIDE 30 ML UDCUP PO PRN (14:49)
[2016-12-23] MEDS ORDERED: LACTULOSE 20 GM/30 ML UDCUP PO PRN (14:49)
--- NOTE | 2016-12-23 14:51 | HOSPPROG ---
Hospitalist Progress Note Assessment/Plan: Acute on chronic hypoxemic and hypercarbic respiratory failure in setting of bullous emphysema, viral URI and PAULINE - extubated 12/21, very wheezy and SOB today with significant wet cough. -schedule duonebs, prn alb nebs -will ask RT to do pulmonary hygiene -cont po prednisone, begin wean at discharge -cont guaifenesin -doubt PNA with PCT 0.03, d/c atbx Hyponatremia - mild, follow Hypothyroidism - cont levothyroxine Depression - cont wellbutrin Tobacco abuse - encourage cessation Full code Dispo - cont inpt, will need SNF, CM assistance requested Subjective: Pt feels better, though still coughing and wheezing. He has very little activity reserve per RN. No CP. No fevers. Uses 2 LPM O2 at home. Objective: Vital Signs Temp Pulse Resp BP Pulse Ox 36.7 C 90 18 138/71 H 93 12/23/16 12:00 12/23/16 13:14 12/23/16 12:00 12/23/16 12:00 12/23/16 13:14 Microbiology 12/20/16 17:45 - Final Sputum, Induced/Suctioned Sputum Culture - Final Toña Albicans Laboratory Results 12/23/16 05:30 12/23/16 05:30 12/22/16 12/23/16 12/24/16 05:59 05:59 05:59 Intake Total 1981 1600 Output Total 1000 2300 Balance 981 -700 PT 13.4 SEC (12.0-15.0) 12/20/16 15:40 INR 1.05 (0.83-1.16) 12/20/16 15:40 - Physical Exam Constitutional: no apparent distress Eyes: PERRL Ears, Nose, Mouth, Throat: moist mucous membranes Cardiovascular: regular rate and rhythym, no murmur, rub, or gallop Respiratory: no respiratory distress, reduced air movement, expiratory wheeze Skin: warm Musculoskeletal: generalized weakness Neurologic: AAOx3 Psychiatric: interacting appropriately ICD10 Worksheet Patient Problems: Problems Problem Status Onset COPD exacerbation Acute Hypoxia Acute Pneumonia Acute Respiratory distress Acute Respiratory failure Acute Acute respiratory failure Acute
--- NOTE | 2016-12-23 15:30 | ASMTCMCOM ---
CM Note CM Note Notes: CM met w/ pt for dispo planning. PT/OT are recommending SNF. CM spoke w/ Dr. Allison regarding d/c POC. Pt would like referrals made to [facility] and [facility]. CM sent referrals to facilities. CM to follow. Date Signed: 12/23/2016 03:29 PM Electronically Signed By:LUKE Lucio
[2016-12-23] MEDS: IPRATROPIUM/ALBUTEROL 3 ML DEYVIAL IH SCH ×3 (15:40→23:10)
[2016-12-23] MEDS: POLYETHYLENE GLYCOL 3350 17 GM PKT PO PRN (16:03)
[2016-12-23] MEDS: predniSONE 20 MG TAB PO SCH (17:44)
[2016-12-23] MEDS: SENNOSIDES/DOCUSATE SODIUM TAB PO SCH (20:13)
[2016-12-23] MEDS: traZODone 100 MG TAB PO SCH (20:13)
[2016-12-24] MEDS: IPRATROPIUM/ALBUTEROL 3 ML DEYVIAL IH SCH ×6 (04:15→20:41)
[2016-12-24] MEDS: LEVOTHYROXINE 75 MCG TAB PO SCH (06:56)
[2016-12-24] MEDS: FLUTICASONE/SALMETER 500/50MCG DISKUS IH SCH ×2 (07:28→20:41)
[2016-12-24 07:34] LABS: ANION GAP -1 mEq/L (8-16); CALCIUM 8.7 mg/dL (8.5-10.4); CARBON DIOXIDE 39 mEq/l (22-31); CHLORIDE 96 mEq/L (97-110); CREATININE 0.7 mg/dL (0.7-1.3); GLOMERULAR FILTRATION RATE > 60; GLUCOSE 95 mg/dL (70-100); POTASSIUM 4.3 mEq/L (3.5-5.2); SODIUM 134 mEq/L (134-144)
[2016-12-24] MEDS: CEPHALEXIN 500 MG CAP PO SCH (08:01)
[2016-12-24] MEDS: SENNOSIDES/DOCUSATE SODIUM TAB PO SCH ×2 (08:01→20:21)
[2016-12-24] MEDS: predniSONE 20 MG TAB PO SCH ×2 (08:01→17:23)
[2016-12-24] MEDS: SERTRALINE HCL 50 MG TAB PO SCH (08:01)
[2016-12-24] MEDS: FAMOTIDINE 20 MG TAB PO SCH ×2 (08:02→20:21)
[2016-12-24] MEDS: PANTOPRAZOLE SODIUM 40 MG TAB PO SCH (08:02)
[2016-12-24] MEDS: ENOXAPARIN 40 MG/0.4 ML SYR SC SCH (08:02)
[2016-12-24] MEDS: guaiFENesin 600 MG TAB.ER PO SCH ×2 (08:02→20:22)
[2016-12-24] MEDS: NICOTINE 14 MG/24 HR PATCH TD SCH (08:05)
[2016-12-24] MEDS: POLYETHYLENE GLYCOL 3350 17 GM PKT PO PRN (15:00)
--- NOTE | 2016-12-24 15:15 | PDINTPN ---
Scale Balancer Progress Note Assessment/Plan: Assessment: Acute on Chronic hypercapneic respiratory failure: S/P intubation/mechanical ventilation. Extubated, now on O2 at 3 liters/minute. REspiratory panel + for rhinovirus/enterovirus. No signs of bacterial infection, with normal WBC, procalcitonin, and afebrile. No signs CHF. 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 Tobacco abuse: Smokes 4-5 cigarettes/day. Plan: Continue BiPAP PRN. Continue Advair/Spiriva, nebs, Mucinex. PO steroid with slow taper (probably 10-14 days total). Viral exacerbations of COPD can be very slow to resolve back to baseline (weeks). 12/24/16 15:13 12/24/16 15:16 Subjective: Breathing better, but still labored and not back to baseline. Objective: Vital Signs Temp Pulse Resp BP Pulse Ox 36.9 C 106 H 20 134/87 H 91 L 12/24/16 11:33 12/24/16 11:33 12/24/16 11:33 12/24/16 11:33 12/24/16 11:33 Microbiology 12/20/16 17:45 - Final Sputum, Induced/Suctioned Sputum Culture - Final Toña Albicans Laboratory Results 12/23/16 05:30 12/24/16 06:55 12/23/16 12/24/16 12/25/16 05:59 05:59 05:59 Intake Total 1600 550 Output Total 2300 1150 Balance -700 -600 PT 13.4 SEC (12.0-15.0) 12/20/16 15:40 INR 1.05 (0.83-1.16) 12/20/16 15:40 Physical Exam - Physical Exam General Appearance: alert, no apparent distress EENT: normal ENT inspection Neck: normal inspection Respiratory: decreased breath sounds, wheezing Cardiac/Chest: regular rate, rhythm, edema Abdomen: normal bowel sounds, non-tender Extremities: non-tender, normal inspection Neuro/Psych: alert, normal mood/affect, oriented x 3 ICD10 Worksheet Patient Problems: Problems Problem Status Onset COPD exacerbation Acute Hypoxia Acute Pneumonia Acute Respiratory distress Acute Respiratory failure Acute Acute respiratory failure Acute
--- NOTE | 2016-12-24 15:41 | HOSPPROG ---
Hospitalist Progress Note Assessment/Plan: Acute on chronic hypoxemic and hypercarbic respiratory failure in setting of bullous emphysema, viral URI and PAULINE - extubated 12/21, remains very wheezy and SOB. Discussed with pulm, recent FEV1 23%, very poor prognosis. He may be nearing the end of life. -cont scheduled duonebs, prn alb nebs -pulmonary hygiene -cont po prednisone, begin wean at discharge -cont guaifenesin -doubt PNA with PCT 0.03, d/c'd atbx -consider low dose roxanol for air hunger Hyponatremia - mild, follow Hypothyroidism - cont levothyroxine Depression - cont wellbutrin Tobacco abuse - encourage cessation Full code Dispo - cont inpt, will need SNF, CM assistance requested. Likely dc in 1-2 days. Subjective: Pt quite SOB and any activity including conversing. He has little reserve. No CP. Cough persists, though a little better. No fevers. No pain. Objective: Vital Signs Temp Pulse Resp BP Pulse Ox 36.9 C 106 H 20 134/87 H 91 L 12/24/16 11:33 12/24/16 11:33 12/24/16 11:33 12/24/16 11:33 12/24/16 11:33 Microbiology 12/20/16 17:45 - Final Sputum, Induced/Suctioned Sputum Culture - Final Toña Albicans Laboratory Results 12/23/16 05:30 12/24/16 06:55 12/23/16 12/24/16 12/25/16 05:59 05:59 05:59 Intake Total 1600 550 Output Total 2300 1150 Balance -700 -600 PT 13.4 SEC (12.0-15.0) 12/20/16 15:40 INR 1.05 (0.83-1.16) 12/20/16 15:40 - Physical Exam Constitutional: no apparent distress Eyes: PERRL Ears, Nose, Mouth, Throat: moist mucous membranes Cardiovascular: regular rate and rhythym Respiratory: no respiratory distress, reduced air movement, expiratory wheeze Gastrointestinal: normoactive bowel sounds, soft, non-tender abdomen Skin: warm Musculoskeletal: generalized weakness Neurologic: AAOx3 Psychiatric: interacting appropriately ICD10 Worksheet Patient Problems: Problems Problem Status Onset COPD exacerbation Acute Hypoxia Acute Pneumonia Acute Respiratory distress Acute Respiratory failure Acute Acute respiratory failure Acute
[2016-12-24] MEDS: traZODone 100 MG TAB PO SCH (20:21)
[2016-12-25] MEDS: IPRATROPIUM/ALBUTEROL 3 ML DEYVIAL IH SCH ×3 (06:00→15:35)
[2016-12-25] MEDS: LEVOTHYROXINE 75 MCG TAB PO SCH (06:07)
[2016-12-25] MEDS: CEPHALEXIN 500 MG CAP PO SCH (08:44)
[2016-12-25] MEDS: NICOTINE 14 MG/24 HR PATCH TD SCH (08:45)
[2016-12-25] MEDS: guaiFENesin 600 MG TAB.ER PO SCH (08:45)
[2016-12-25] MEDS: FAMOTIDINE 20 MG TAB PO SCH (08:45)
[2016-12-25] MEDS: SERTRALINE HCL 50 MG TAB PO SCH (08:45)
[2016-12-25] MEDS: PANTOPRAZOLE SODIUM 40 MG TAB PO SCH (08:45)
[2016-12-25] MEDS: predniSONE 20 MG TAB PO SCH (08:45)
[2016-12-25] MEDS: ENOXAPARIN 40 MG/0.4 ML SYR SC SCH (08:45)
[2016-12-25] MEDS: SENNOSIDES/DOCUSATE SODIUM TAB PO SCH (08:47)
[2016-12-25] MEDS: FLUTICASONE/SALMETER 500/50MCG DISKUS IH SCH (09:43)
--- NOTE | 2016-12-25 11:26 | PDIAF ---
- Diagnosis Diagnosis: End stage COPD Code Status: Full Code - Medication Management Discharge Medications: Medications to Continue on Transfer Levothyroxine [Synthroid 75 mcg (*)] 75 mcg PO DAILY06 09/06/11 [Last Taken 12/27] Fluticasone/Salmeter 500/50Mcg [Advair 500/50 (*)] 1 puffs IH BID #1 disk [Last Taken 12/20/16] Albuterol [Proventil Inhaler HFA (*)] 1 - 2 puffs IH DAILY PRN 12/21/16 [Last Taken Unknown] Cephalexin [Keflex (*)] 500 mg PO DAILY 12/21/16 [Last Taken 12/20/16] Omeprazole [Prilosec 20 mg] 20 mg PO DAILY 12/21/16 [Last Taken 12/20/16] Sertraline HCl [Zoloft 50mg (*)] 50 mg PO DAILY 12/21/16 [Last Taken 12/20/16] traZODone [traZODONE 100MG (*)] 100 mg PO HS 12/21/16 [Last Taken 12/19/16] Albuterol [Proventil Neb] 3 ml IH Q2H PRN #120 deyvial 12/25/16 [Last Taken Unknown] Ipratropium/Albuterol [Duoneb (*)] 3 ml IH QID #120 deyvial 12/25/16 [Last Taken Unknown] Nicotine [Nicoderm Cq 14 mg (*)] 14 mg TD DAILY #14 patch 12/25/16 [Last Taken Unknown] guaiFENesin [Mucinex 600 MG (*)] 1,200 mg PO BID #60 tab.er 12/25/16 [Last Taken Unknown] predniSONE 60 mg PO DAILY #60 tablet 12/25/16 [Last Taken Unknown] Discharge Medications: Refer to the Discharge Home Medication list for PRN reason. PICC Care - Routine: N/A - Orders Services needed: Registered Nurse, Physical Therapy, Occupational Therapy Oxygen: 2-3 LPM Diet Recommendation: no restrictions on diet Diet Texture: Regular Texture Diet, Thin Liquids, Meds Whole in Puree - Follow Up Care Current Providers and Referrals: Antonio Chen MD [Primary Care Provider] - As per Instructions
[2016-12-25 11:51] VITALS: BP 130/67; TEMP 98.4
--- NOTE | 2016-12-25 11:55 | ASMTCMCOM ---
CM Note CM Note Notes: Patient has been discharged. [facility] up transport with [facility]. 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 Patient's partner, Hosea, contacted about discharge. Date Signed: 12/25/2016 11:54 AM Electronically Signed By:Nany Hughes LCSW
[2016-12-25 12:17] VITALS: RESP 16
[2016-12-25 15:47] VITALS: PULSE 90; O2SAT 93
--- NOTE | 2016-12-25 16:54 | ASDISCHSUM ---
Discharge Information Plan Status:SNF Medically Cleared to Leave:12/25/2016 Discharge Date:12/25/2016 04:27 PM CM D/C Disposition:Nursing Home Facility ADT D/C Disposition:Nursing Home Facility Projected Discharge Date:12/25/2016 04:00 PM Transportation at D/C:Wheelchair Van Discharge Delay Reason: Follow-Up Date:12/25/2016 04:00 PM Discharge Slot:2 - 12:01 pm - 18:00 pm Final Diagnosis:End Stage COPD Placement Information Referral Type:*Halfway/SNF Referral ID:[id number] Provider Name:[facility] Address 1:[facility] Address 2: City:[place] Selection Factors: State:[place] Referral Type:*Halfway/SNF Referral ID:[id number] Provider Name:[facility] Address 1:[address] Address 2: [facility]:[place] Selection Factors: State:[place] Patient Contact Information Contact Name:ANTONIO Relationship:Life Partner Address:[address] City:[facility] Phone: State/Zip Code:[place] [address] Email: Financial Information Financial Class: Primary Plan Desc:MEDICARE INPATIENT Primary Plan Number:[id number] Secondary Plan Desc:CHHAYA/REEMA SUPPLEMENT Secondary Plan Number:[id number] Assessment Information [facility] CM Progress Note CM Note CM Note Notes: Patient admitted for acute on chronic hypoxemic and hypercarbic respiratory failure. He has a hx of COPD and is on 2L O2 at home. He lives independently with his partner Moses. Patient is currently intubated/sedated, will begin to wean today. He does not have any therapy evals ordered, so I don't anticipate any CM discharge needs, but we are available if things change. Date Signed: 12/21/2016 11:37 AM Electronically Signed By:Mercedes Walker RN [facility] CM Progress Note CM Note CM Note Notes: CM met w/ pt for dispo planning. PT/OT are recommending SNF. CM spoke w/ Dr. Allison regarding d/c POC. Pt would like referrals made to [facility] and [facility]. CM sent referrals to facilities. CM to follow. Date Signed: 12/23/2016 03:29 PM Electronically Signed By:LUKE Lucio [facility] CM Progress Note CM Note CM Note Notes: Patient has been discharged. Discharge orders sent to [facility] [address]. [facility] has set up transport with [facility]. 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 Patient's partner, Hosea, contacted about discharge. Date Signed: 12/25/2016 11:54 AM Electronically Signed By:Nany Hughes LCSW Intervention Information Intervention Type:*IM-Signed Date of Service:12/25/2016 12:15 PM Patient Type:Inpatient Staff Member:RENE Hughes Judith Hours:0.25 Discipline:Sidehand Severity: Comment:
--- NOTE | 2016-12-26 05:06 | GDS ---
[f rep st] DISCHARGE SUMMARY DISCHARGE DIAGNOSES: 1. Acute on chronic hypoxemic and hypercarbic respiratory failure secondary to chronic obstructive p ulmonary disease exacerbation. 2. Acute exacerbation of chronic obstructive pulmonary disease secondary to a viral upper respirator y infection. 3. Viral upper respiratory infection with respiratory pathogen panel positive for rhinovirus and ent erovirus. 4. Tobacco abuse. CONSULTANTS: Dr. Gage Mendieta, Pulmonology. PROCEDURES: 1. PICC line insertion December 20. 2. Bronchoscopy December 20 revealed small to moderate amount of thin mucopurulent secretions bilat erally, which were suctioned. There was no evidence of occlusive mucous plugging. No endobronchial lesions. HISTORY: For details, please see dictated history and physical dated December 20, 2016. In brief, th e patient is a 71-year-old male with a history of advanced COPD, chronically on 2 L of oxygen, who pr esented to the emergency department with worsening dyspnea. He had recently been treated with predni sone and ciprofloxacin in the outpatient setting. In the emergency department, he decompensated and required intubation and mechanical ventilation. He was admitted to the intensive care unit for [facility] er management. HOSPITAL COURSE: Patient was admitted to the ICU and remained intubated for approximately 24 hours, at which point he was extubated due to a cuff leak. His initial blood gas showed respiratory acidosi s with a pCO2 of 88. His pH normalized, and the pCO2 improved to 47, even after extubation. He has intermittently had a chronically elevated serum bicarb in the 30s. His blood cultures were negative. His sputum culture grew only apolinar. Respiratory panel was positive for rhinovirus, enterovirus; negative for influenza. Procalcitonin done on admission was 0.03, making a bacterial process unlikel y. Thus, antibiotics were discontinued, and the patient was treated with scheduled DuoNeb, along wit h albuterol nebs, high-dose steroids, and mucolytic. Per discussion with Pulmonology, his most recen t pulmonary function test showed an FEV1 of 23%. This suggests that he is nearing the end stage of C OPD. It is noted that he is managed with Keflex in the outpatient setting and was recently treated w ith ciprofloxacin. Neither of these are optimal choices for respiratory pathogens. Will go ahead an d continue him on his Keflex as ordered by the outpatient physician. However, would consider a diffe rent antibiotic such as Biaxin for its antiinflammatory properties in the setting of end-stage COPD. Will defer to his outpatient physician if he would like to try this option. His high-dose steroids were weaned down, and he is discharged on 60 mg of prednisone a day with a prolonged taper. I have a lso discharged him on DuoNeb and albuterol nebs. In addition, he was given a NicoDerm patch, and he was counseled on the importance of tobacco cessation. Both I and Pulmonology discussed with the nano ent that he is nearing the end stage of COPD with an FEV1 of 23%. He will need close outpatient foll owup. He was found to have very little reserve and tolerates activity poorly; therefore, it was charmaine mmended he transfer to rehab prior to going home. DISPOSITION: [facility] condition. FOLLOWUP: Dr. Chen in 1 week. DISCHARGE MEDICATIONS: [facility]. New medications on discharge include: 1. DuoNeb 3 mL inhaled q.i.d., #20, no refills. 2. Albuterol nebs 3 mL inhaled q.2 hours p.r.n., #120, no refills. 3. Mucinex 1200 mg p.o. b.i.d. 4. Prednisone 60 mg p.o. daily for 3 days, then 50 mg p.o. daily for 3 days, then 40 mg p.o. daily f or 3 days, then 30 mg p.o. daily for 3 days, then 20 mg p.o. daily for 3 days, then 10 mg p.o. daily for 3 days. 5. NicoDerm patch 14 mg daily for 2 weeks. Discontinued medications include propranolol. Combivent is discontinued in favor of DuoNeb. Ciprofl oxacin was discontinued. He will continue all other outpatient medications as previously prescribed. /[id number]/MODL
== END 2016-12-25 16:27 | DRG 208 ==
LOC: CED 15:13 → CEDHOLD 16:00 → F2N 17:16 → F2W 12-22 23:20
PROVIDERS: ADMIT Student in an Organized Health Care Education/Training Program; ATTEND Student in an Organized Health Care Education/Training Program
PROC: 5A1935Z Respiratory Ventilation, Less than 24 Consecutive Hours (ICD-10-PCS; principal; 2016-12-20)
PROC: 0BH17YZ Insertion of Other Device into Trachea, Via Natural or Artificial Opening (ICD-10-PCS; principal; 2016-12-20)
PROC: 0B938ZX Drainage of Right Main Bronchus, Via Natural or Artificial Opening Endoscopic, Diagnostic (ICD-10-PCS; 2016-12-20)
PROC: 0B978ZX Drainage of Left Main Bronchus, Via Natural or Artificial Opening Endoscopic, Diagnostic (ICD-10-PCS; 2016-12-20)
PROC: 02HV33Z Insertion of Infusion Device into Superior Vena Cava, Percutaneous Approach (ICD-10-PCS; 2016-12-20)
DX: J96.22 Acute and chronic respiratory failure with hypercapnia (principal); J96.21 Acute and chronic respiratory failure with hypoxia; J44.1 Chronic obstructive pulmonary disease with (acute) exacerbation; J43.9 Emphysema, unspecified; J06.9 Acute upper respiratory infection, unspecified; B97.89 Other viral agents as the cause of diseases classified elsewhere; G47.33 Obstructive sleep apnea (adult) (pediatric); E87.1 Hypo-osmolality and hyponatremia; G25.0 Essential tremor; E03.9 Hypothyroidism, unspecified; F17.210 Nicotine dependence, cigarettes, uncomplicated; F10.21 Alcohol dependence, in remission; Z86.73 Personal history of transient ischemic attack (TIA), and cerebral infarction without residual deficits; Z99.81 Dependence on supplemental oxygen; F32.9 Major depressive disorder, single episode, unspecified
CPT/HCPCS: 71010-PO; 80048-PO; 80076-PO; 82550-PO; 82553-PO; 83605-PO; 83690-PO; 83735-PO; 83880-PO; 85025-PO; 85610-PO; 85730-PO; 92526-GN; 92610-GN; 96374; 97116-GP; 97162-GP; 97166-GO; 97530-GO; 97530-GP; 97535-GO; C1751; G0463-PO; G8978-GP-CK; G8979-GP-CI; G8987-GO-CL; G8988-GO-CJ; G8996-GN-CI; G8997-GN-CH; G8998-GN-CH; J0456; J0692; J0696; J1650; J2250; J3010

== ENCOUNTER 2018-04-21 09:36 | Inpatient (IN) | payer OTHER, MEDICARE ==
[2018-04-21] MEDS ORDERED: MAGNESIUM SULF 2 GM/WATER 50 ML IV ONE (09:41)
[2018-04-21] MEDS ORDERED: IPRATROPIUM/ALBUTEROL 3 ML DEYVIAL IH ONE (09:41)
[2018-04-21] MEDS ORDERED: NS 500 ML IV ONE (09:41)
--- NOTE | 2018-04-21 09:46 | EDPHY ---
H & P Time Seen by Provider: 04/21/18 09:42 HPI/ROS: HPI: This is a 72-year-old male who presents with Chief Complaint: Shortness of breath Location: Chest Quality: Shortness of breath Duration: 2-3 days Signs and Symptoms: + shortness of breath at rest, + shortness of breath on exertion, + productive cough, no chest pain, no palpitations, no lower extremity edema, no wheezing, no orthopnea, no paroxysmal nocturnal dyspnea, no fever, no injury/trauma, no hemoptysis, no carpal pedal spasms Timing: Acute on chronic Severity: Moderate to severe Context: Patient has a history of COPD, supplemental oxygen dependent 2 L anal can no continuous, presents with complaints of 2-3 day history of worsening shortness of breath accompanied by productive cough and low-grade fevers. Patient reports that he last uses DuoNeb nebulizer last night around 9:00 p.m. He woke up this morning with increased work of breathing, productive cough, difficulty breathing and shortness of breath at rest that worsens with any exertion. He called EMS who gave patient continuous nebulizer albuterol and IV Solu-Medrol 125 mg. Initial oxygen saturation on 2 L nasal cannula was 84%. Last COPD exacerbation admission was in December 2016. Patient reports that he has had to be intubated due to respiratory failure in the remote past. Modifying Factors: Comment: ROS: A comprehensive 10 system review of systems is otherwise negative aside from elements mentioned in the history of present illness. MEDICAL/SURGICAL/SOCIAL HISTORY: Medical history: COPD, supplemental oxygen dependent, hypothyroidism, essential tremor Surgical history: Denies Social history: Former smoker of 60+ years. Retired. CONSTITUTIONAL: Overweight, mild distress, unable to talk in complete sentences , elderly white male, awake and alert HEENT: Atraumatic and normocephalic, PERRL, EOMI. Nares patent; no rhinorrhea; no nasal mucosal edema. Tympanic membranes clear. Oropharynx clear, no exudate and moist pink mucosa. Airway patent. No lymphadenopathy. No meningismus. Cardiovascular: Normal S1/S2, tachycardia, regular rhythm, without murmur rub or gallop. PULMONARY/CHEST: Symmetrical and nontender. Expiratory wheezing bilaterally. Rhonchi at the right lower lobe. Poor air movement. Moderate accessory muscle usage. Tachypnea. shallow inspiratory effort. ABDOMEN: Soft, mildly distended, nontender, no rebound, no guarding, no peritoneal signs, no masses or organomegaly. No CVAT. EXTREMITIES: 2/2 pulses, strength 5/5, no deformities, no clubbing, no cyanosis or edema. NEUROLOGICAL: no focal neuro deficits. GCS 15. SKIN: Warm and dry, pallor, leathery, no erythema. no rash. Good capillary refill. Source: Patient, EMS, Old records - Personal History Tetanus Vaccine Date: 06/22 - Medical/Surgical History Hx Asthma: Yes Hx Chronic Respiratory Disease: Yes Hx Diabetes: No Hx Cardiac Disease: No Hx Renal Disease: No Hx Cirrhosis: No Hx Alcoholism: No Hx HIV/AIDS: No Hx Splenectomy or Spleen Trauma: No Other PMH: med hx-copd. surg- low thyroid, essential tremors - Social History Smoking Status: Current every day smoker Constitutional: Initial Vital Signs O2 Sat (%) 93 04/21/18 09:41 O2 Delivery Mode Nasal Cannula O2 (L/minute) 3 Allergies/Adverse Reactions: venom-wasp [Wasp Venom] Allergy (Unknown, Verified 05/17/14 14:10) sulfamethoxazole [From Bactrim] Allergy (Verified 12/21/16 10:01) "made skin peel off" trimethoprim [From Bactrim] Allergy (Verified 12/21/16 10:01) "made skin peel off" Home Medications: Medication Instructions Recorded Levothyroxine [Synthroid 75 mcg 75 mcg PO DAILY06 09/06/11 (*)] Fluticasone/Salmeter 500/50Mcg 1 puffs IH BID #1 disk 03/18/14 [Advair 500/50 (*)] Albuterol [Proventil Inhaler HFA 1 - 2 puffs IH DAILY PRN 12/21/16 (*)] Cephalexin [Keflex (*)] 500 mg PO DAILY 12/21/16 Omeprazole [Prilosec 20 mg] 20 mg PO DAILY 12/21/16 Sertraline HCl [Zoloft 50mg (*)] 50 mg PO DAILY 12/21/16 traZODone [traZODONE 100MG (*)] 50 mg PO HS 12/21/16 Albuterol [Proventil Neb] 3 ml IH Q2H PRN #120 deyvial 12/25/16 Ciprofloxacin [Cipro] 500 mg PO BID 04/21/18 Cyanocobalamin [Vitamin B12 (*)] 1,000 mcg PO DAILY 04/21/18 Docusate Sodium [Colace 100 MG (*)] 100 mg PO DAILY 04/21/18 Ipratropium/Albuterol [Combivent 1 inh IH BID 04/21/18 Respimat Inhal [place](*)] Ipratropium/Albuterol [Duoneb (*)] 3 ml IH BID 04/21/18 Propranolol HCl [Inderal 10mg (*)] 10 mg PO DAILY 04/21/18 Medical Decision Making - Diagnostics Imaging Results: Imaging Impressions Chest X-Ray 04/21/18 09:41 Impression: Nothing acute identified. Please see above. ED Course/Re-evaluation: Vital signs reviewed and show 92% on 3 L nasal cannula, tachypnea and sinus tachycardia upon arrival. Placed on environmental monitoring technician. IV access, laboratory studies, chest x-ray, EKG, respiratory pathogen panel, medications ordered Patient given DuoNeb, IV magnesium 2 g, 500 cc normal saline 0946: EKG my read shows sinus tachycardia with no acute ischemic changes 1030: Chest x-ray my read shows no acute opacity, effusion., + hyper inflammatory changes consistent with COPD noted Labs reviewed and show WBC of 21 K likely reactive to steroid use. ProBNP mildly elevated at 584. 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 ED decision to consult hospitalist for admission for moderate COPD exacerbation. Spoke with Lindsey who kindly agrees to admit patient under the care of Dr. Jane. Respiratory pathogen panel pending at time of consultation. 1300: Respiratory pathogen panel negative This patient was seen under the supervision of my secondary supervising physician. I evaluated care for this patient with attending. Discussed this patient with Dr. Brenner. Differential Diagnosis: Shortness of breath including but not limited to pulmonary infectious process, COPD, asthma, pulmonary embolus and congestive heart failure. - Data Points Laboratory Results: Laboratory Results 04/21/18 09:45 04/21/18 09:45 04/21/18 04/21/18 09:45 09:45 WBC 21.52 10^3/uL H 10^3/uL (3.80-9.50) RBC 4.71 10^6/uL 10^6/uL (4.40-6.38) Hgb 13.1 g/dL L g/dL (13.7-17.5) Hct 42.1 % % (40.0-51.0) MCV 89.4 fL fL (81.5-99.8) MCH 27.8 pg L pg (27.9-34.1) MCHC 31.1 g/dL L g/dL (32.4-36.7) RDW 16.5 % H % (11.5-15.2) Plt Count 235 10^3/uL 10^3/uL (150-400) MPV 10.5 fL fL (8.7-11.7) Neut % (Auto) 80.1 % H % (39.3-74.2) Lymph % (Auto) 7.0 % L % (15.0-45.0) [place] % (Auto) 11.2 % % (4.5-13.0) Eos % (Auto) 0.3 % L % (0.6-7.6) Baso % (Auto) 0.2 % L % (0.3-1.7) Nucleat RBC Rel Count 0.0 % % (0.0-0.2) Absolute Neuts (auto) 17.24 10^3/uL H 10^3/uL (1.70-6.50) Absolute Lymphs (auto) 1.51 10^3/uL 10^3/uL (1.00-3.00) Absolute Monos (auto) 2.41 10^3/uL H 10^3/uL (0.30-0.80) Absolute Eos (auto) 0.06 10^3/uL 10^3/uL (0.03-0.40) Absolute Basos (auto) 0.05 10^3/uL 10^3/uL (0.02-0.10) Absolute Nucleated RBC 0.00 10^3/uL 10^3/uL (0-0.01) Immature Gran % 1.2 % H % (0.0-1.1) Immature Gran # 0.25 10^3/uL H 10^3/uL (0.00-0.10) Platelet Estimate ADEQUATE (ADEQ) Sodium 137 mEq/L mEq/L (135-145) Potassium 4.3 mEq/L mEq/L (3.5-5.2) Chloride 98 mEq/L mEq/L (97-110) Carbon Dioxide 30 mEq/l mEq/l (22-31) Anion Gap 9 mEq/L mEq/L (6-14) BUN 30 mg/dL H mg/dL (7-23) Creatinine 0.9 mg/dL mg/dL (0.7-1.3) Estimated GFR > 60 Glucose 109 mg/dL H mg/dL (70-100) Calcium 8.4 mg/dL L mg/dL (8.5-10.4) NT-Pro-B Natriuret Pep 584 pg/mL H pg/mL (0-125) Microbiology Results: MICROBIOLOGY 04/21/18 09:40 Nasal, Sinus - [place] Viral Transport Respiratory Panel ( PCR) - Final No Organism Detected By Pcr Medications Given: Discontinued Medications Albuterol/Ipratropium (Duoneb) 3 ml IH EDNOW ONE Stop: 04/21/18 09:42 Last Admin: 04/21/18 10:03 Dose: 3 ml Sodium Chloride (Ns) 500 mls @ 1,000 mls/hr IV EDNOW ONE PRN Reason: Protocol Stop: 04/21/18 10:10 Last Admin: 04/21/18 10:04 Dose: 500 mls Magnesium Sulfate (Magnesium Sulf 2 Gm (Premix)) 50 mls @ 50 mls/hr IV EDNOW ONE Stop: 04/21/18 10:40 Last Admin: 04/21/18 10:03 Dose: 50 mls Departure - Departure Disposition: [facility] Inpatient Acute Clinical Impression: COPD with exacerbation Condition: Fair
[2018-04-21 10:08] LABS: PLATELET COUNT 235 10^3/uL (150-400)
[2018-04-21] MEDS ORDERED: ONDANSETRON DISINTEGRATING 4 MG TAB PO PRN (11:39)
[2018-04-21] MEDS ORDERED: ALBUTEROL 3 ML DEYVIAL IH PRN (11:39)
[2018-04-21] MEDS ORDERED: ONDANSETRON 4 MG/2 ML VIAL IVP PRN (11:39)
[2018-04-21] MEDS ORDERED: NS 1,000 ML IV SCH (11:45)
[2018-04-21] MEDS ORDERED: IPRATROPIUM/ALBUTEROL 3 ML DEYVIAL IH PRN (12:15)
[2018-04-21] MEDS: IPRATROPIUM/ALBUTEROL 3 ML DEYVIAL IH SCH ×3 (13:50→21:47)
--- NOTE | 2018-04-21 15:02 | PDGENHP ---
History and Physical - Chief Complaint SOB - History of Present Illness Clayton Sargent is a 72 yo M with a PMHx of COPD on 2L NC, Hypothyroidism, Essential Tremor who presents to [facility] for CC of SOB. He reports that syptoms started about 3 days ago with subacute onset of worsening SOB with nonproductive cough and low grade fevers. He reports that he is unable to walk short distances without getting out of breath. He also reports increased wheezing. He used his DuoNeb with some improvement in symptoms. He woke up this morning feeling acutely SOB so he called EMS who have the patient albuterol nub and IV Solumedrol 125 mg. Initial 02 sat on 2L NC was 84%. He denies any chest pain, edema, abdominal pain, d/c, n/v, palpitations, LH/ dizziness, hemoptysis. History Information - Allergies/Home Medication List Allergies/Adverse Reactions: venom-wasp [Wasp Venom] Allergy (Unknown, Verified 05/17/14 14:10) sulfamethoxazole [From Bactrim] Allergy (Verified 12/21/16 10:01) "made skin peel off" trimethoprim [From Bactrim] Allergy (Verified 12/21/16 10:01) "made skin peel off" Home Medications: Levothyroxine [Synthroid 75 mcg (*)] 75 mcg PO DAILY06 09/06/11 [Last Taken 10/29] Albuterol [Proventil Inhaler HFA (*)] 1 - 2 puffs IH DAILY PRN 12/21/16 [Last Taken Unknown] Cephalexin [Keflex (*)] 500 mg PO DAILY 12/21/16 [Last Taken 04/20/18] Omeprazole [Prilosec 20 mg] 20 mg PO DAILY 12/21/16 [Last Taken 04/20/18] Sertraline HCl [Zoloft 50mg (*)] 50 mg PO DAILY 12/21/16 [Last Taken 04/20/18] traZODone [traZODONE 100MG (*)] 50 mg PO HS 12/21/16 [Last Taken 04/20/18] Ciprofloxacin [Cipro] 500 mg PO BID 04/21/18 [Last Taken 04/20/18] Cyanocobalamin [Vitamin B12 (*)] 1,000 mcg PO DAILY 04/21/18 [Last Taken ] Docusate Sodium [Colace 100 MG (*)] 100 mg PO DAILY 04/21/18 [Last Taken ] Ipratropium/Albuterol [Combivent Respimat Inhal [place](*)] 1 inh IH BID 04/21/18 [Last Taken 04/20/18] Ipratropium/Albuterol [Duoneb (*)] 3 ml IH BID 04/21/18 [Last Taken 04/20/18] Propranolol HCl [Inderal 10mg (*)] 10 mg PO DAILY 04/21/18 [Last Taken 04/20/18] I have personally reviewed and updated: family history, medical history, social history, surgical history - Past Medical History Additional medical history: Hypothyroidism, Essential Tremor - Surgical History Reports: no pertinent surgical hx - Family History Positive for: non-pertinent - Social History Smoking Status: Current every day smoker Review of Systems Review of Systems: ROS: 10pt was reviewed & negative except for what was stated in HPI & below Physical Exam Physical Exam: Temp Pulse Resp BP Pulse Ox 36.9 C 106 H 22 H 124/67 H 97 04/21/18 11:23 04/21/18 13:53 04/21/18 13:53 04/21/18 11:23 04/21/18 13:53 O2 (L/minute) 6 Constitutional: chronically ill appearing, uncomfortable Eyes: PERRL Ears, Nose, Mouth, Throat: moist mucous membranes Cardiovascular: tachycardia Respiratory: reduced air movement, expiratory wheeze, No respiratory distress Gastrointestinal: soft, non-tender abdomen Skin: warm Musculoskeletal: full muscle strength Neurologic: AAOx3 Psychiatric: interacting appropriately Lab Data & Imaging Review 04/21/18 09:45 04/21/18 09:45 WBC 21.52 10^3/uL (3.80-9.50) H 04/21/18 09:45 RBC 4.71 10^6/uL (4.40-6.38) 04/21/18 09:45 Hgb 13.1 g/dL (13.7-17.5) L 04/21/18 09:45 Hct 42.1 % (40.0-51.0) 04/21/18 09:45 MCV 89.4 fL (81.5-99.8) 04/21/18 09:45 MCH 27.8 pg (27.9-34.1) L 04/21/18 09:45 MCHC 31.1 g/dL (32.4-36.7) L 04/21/18 09:45 RDW 16.5 % (11.5-15.2) H 04/21/18 09:45 Plt Count 235 10^3/uL (150-400) 04/21/18 09:45 MPV 10.5 fL (8.7-11.7) 04/21/18 09:45 Neut % (Auto) 80.1 % (39.3-74.2) H 04/21/18 09:45 Lymph % (Auto) 7.0 % (15.0-45.0) L 04/21/18 09:45 [place] % (Auto) 11.2 % (4.5-13.0) 04/21/18 09:45 Eos % (Auto) 0.3 % (0.6-7.6) L 04/21/18 09:45 Baso % (Auto) 0.2 % (0.3-1.7) L 04/21/18 09:45 Nucleat RBC Rel Count 0.0 % (0.0-0.2) 04/21/18 09:45 Absolute Neuts (auto) 17.24 10^3/uL (1.70-6.50) H 04/21/18 09:45 Absolute Lymphs (auto) 1.51 10^3/uL (1.00-3.00) 04/21/18 09:45 Absolute Monos (auto) 2.41 10^3/uL (0.30-0.80) H 04/21/18 09:45 Absolute Eos (auto) 0.06 10^3/uL (0.03-0.40) 04/21/18 09:45 Absolute Basos (auto) 0.05 10^3/uL (0.02-0.10) 04/21/18 09:45 Absolute Nucleated RBC 0.00 10^3/uL (0-0.01) 04/21/18 09:45 Immature Gran % 1.2 % (0.0-1.1) H 04/21/18 09:45 Immature Gran # 0.25 10^3/uL (0.00-0.10) H 04/21/18 09:45 Platelet Estimate ADEQUATE (ADEQ) 04/21/18 09:45 Sodium 137 mEq/L (135-145) 04/21/18 09:45 Potassium 4.3 mEq/L (3.5-5.2) 04/21/18 09:45 Chloride 98 mEq/L (97-110) 04/21/18 09:45 Carbon Dioxide 30 mEq/l (22-31) 04/21/18 09:45 Anion Gap 9 mEq/L (6-14) 04/21/18 09:45 BUN 30 mg/dL (7-23) H 04/21/18 09:45 Creatinine 0.9 mg/dL (0.7-1.3) 04/21/18 09:45 Estimated GFR > 60 04/21/18 09:45 Glucose 109 mg/dL (70-100) H 04/21/18 09:45 Calcium 8.4 mg/dL (8.5-10.4) L 04/21/18 09:45 NT-Pro-B Natriuret Pep 584 pg/mL (0-125) H 04/21/18 09:45 Nasal Influenza A PCR NEGATIVE FOR FLU A (NEGATIVE) 04/21/18 12:40 Nasal Influenza B PCR NEGATIVE FOR FLU B (NEGATIVE) 04/21/18 12:40 Assessment & Plan Assessment: COPD with exacerbation (Acute) - Presenting with SOB, cough, wheezing - Hx of COPD 2L NC, last exacerbation 12/2016, has required intubation in the past - CXR on admission showing no acute process - S/p 125 mg IV Solumedrol in ED, will continue 60 mg q6hrs for now, likely switch to 40 mg Prednisone qd tomorrow - S/p 750 mg Levaquin in ED, will continue for now given leukocytosis - Continue Duoneb QID scheduled as well as PRN - 02 as needed, baseline 2L - Respiratory PCR and Flu negative on admission Acute Hypoxic Respiratory Failure - 02 sat 84% on 2L per report - Significantly decreased breath sounds with wheezing on exam - Management of COPD exacerbation as above - Patient also tachycardic, if no improvement with tx as above, consider CTA to r/o PE - Requiring 6L Oxymizer currently, wean 02 as tolerated Hypothyroidism - Continue home Synthroid GERD - Continue home PPI Essential Tremor - Continue home Propranolol FEN: Regular DVT PPx: Lovenox Code: DNI Dispo: Admit to Medicine
--- NOTE | 2018-04-21 16:50 | PDMN ---
Medical Necessity Medical necessity: MCG M100 COPD, A-2 days: 72 yo w/ acute COPD exacerbation w/ SOB, cough/wheeze in acute hypoxic resp fx w/ sat 84% on 2L, switch to 6L oxymizer. Sig decreased breath sounds. Tachycardic >100, RR 30s. Admit to IP status - anticipate>2MN for monitoring and tx of above w/ nebs, IVF and IV antibx. Hx COPD on 2L, COPD exacerbation requiring intubation 2016, hypothyroid , essential tremor
[2018-04-21] MEDS: methylPREDNISolone SOD SUCC 125 MG/2 ML VIAL IVP SCH ×2 (17:37→23:52)
[2018-04-21] MEDS: PROPRANOLOL HCL 10 MG TAB PO SCH (20:23)
[2018-04-21] MEDS: traZODone 100 MG TAB PO SCH (20:24)
[2018-04-21] MEDS: ACETAMINOPHEN 325 MG TAB PO PRN (20:27)
[2018-04-21] MEDS: FLUTICASONE/SALMETER 500/50MCG DISKUS IH SCH (21:59)
[2018-04-22] MEDS: IPRATROPIUM/ALBUTEROL 3 ML DEYVIAL IH SCH ×4 (04:51→21:18)
[2018-04-22] MEDS: methylPREDNISolone SOD SUCC 125 MG/2 ML VIAL IVP SCH (05:24)
[2018-04-22] MEDS: LEVOTHYROXINE 75 MCG TAB PO SCH (05:25)
[2018-04-22] MEDS: ACETAMINOPHEN 325 MG TAB PO PRN (06:28)
[2018-04-22 06:36] LABS: PLATELET COUNT 186 10^3/uL (150-400)
[2018-04-22] MEDS: predniSONE 20 MG TAB PO SCH (09:25)
[2018-04-22] MEDS: CYANO/VITAMIN B12 1000 MCG TAB PO SCH (09:26)
[2018-04-22] MEDS: DOCUSATE SODIUM 100 MG CAP PO SCH (09:26)
[2018-04-22] MEDS: PROPRANOLOL HCL 10 MG TAB PO SCH (09:26)
[2018-04-22] MEDS: PANTOPRAZOLE SODIUM 40 MG TAB PO SCH (09:26)
[2018-04-22] MEDS: SERTRALINE HCL 50 MG TAB PO SCH (09:26)
[2018-04-22] MEDS: ENOXAPARIN 40 MG/0.4 ML SYR SC SCH (09:27)
[2018-04-22] MEDS: FLUTICASONE/SALMETER 500/50MCG DISKUS IH SCH ×2 (10:12→21:18)
--- NOTE | 2018-04-22 12:10 | HOSPPROG ---
Hospitalist Progress Note Assessment/Plan: COPD with exacerbation (Acute) - Presenting with SOB, cough, wheezing - Hx of COPD 2L NC, last exacerbation 12/2016, has required intubation in the past - CXR on admission showing no acute process - S/p 125 mg IV Solumedrol in ED, continued 60 mg q6hrs yesterday, switch to 40 mg Prednisone qd this AM - S/p 750 mg Levaquin in ED, will continue for now given leukocytosis, switch to PO prior to d/c - Continue Duoneb QID scheduled as well as PRN - 02 as needed, baseline 2L - Respiratory PCR and Flu negative on admission Acute Hypoxic Respiratory Failure - 02 sat 84% on 2L per report - Significantly decreased breath sounds with wheezing on exam - Management of COPD exacerbation as above - Patient also tachycardic, if no improvement with tx as above, consider CTA to r/o PE - Requiring 3L NC currently, wean 02 as tolerated Hypothyroidism - Continue home Synthroid GERD - Continue home PPI Essential Tremor - Continue home Propranolol FEN: Regular DVT PPx: Lovenox Code: DNI Dispo: Pending clinical course, likely d/c tomorrow if able to wean back to home 02 Subjective: Patient reports breathing is much improved this AM Objective: Vital Signs Temp Pulse Resp BP Pulse Ox 36.7 C 93 15 147/84 H 89 L 04/22/18 11:19 04/22/18 10:12 04/22/18 10:12 04/22/18 11:19 04/22/18 11:19 Laboratory Results 04/22/18 05:21 04/21/18 04/22/18 04/23/18 05:59 05:59 05:59 Intake Total 644 Output Total 550 Balance 94 - Physical Exam Constitutional: no apparent distress Eyes: PERRL Ears, Nose, Mouth, Throat: moist mucous membranes Cardiovascular: regular rate and rhythym Respiratory: no respiratory distress, reduced air movement, expiratory wheeze Skin: warm Musculoskeletal: full muscle strength Neurologic: AAOx3 Psychiatric: interacting appropriately ICD10 Worksheet Patient Problems: Problems Problem Status Onset COPD with exacerbation Acute Acute respiratory failure Acute COPD exacerbation Acute Hypoxia Acute Pneumonia Acute Respiratory distress Acute Respiratory failure Acute chronic disease mgmt/transitional care Acute
--- NOTE | 2018-04-22 13:58 | CPEKG ---
Test Reason : OPEN Blood Pressure : / mmHG Vent. Rate : 118 BPM Atrial Rate : 119 BPM P-R Int : 162 ms QRS Dur : 078 ms QT Int : 302 ms P-R-T Axes : 073 054 060 degrees QTc Int : 424 ms Sinus tachycardia Probable left atrial enlargement Confirmed by Juan Brenner ([id number]) on 04/22/2018 1:58:09 PM Referred By: Juan Brenner Confirmed By:Juan Brenner
--- NOTE | 2018-04-22 16:47 | ASMTCMCOM ---
CM Note CM Note Notes: CM chart review for discharge planning: Patient is 72 year old male who presented to [facility] ED, chief complaint: Shortness of Breath. productive cough. Past medical history includes COPD, continuous O2 @ 2L. essential tremors, asthma. Patient admitted and followed for COPD exacerbation. Per chart, possible discharge tomorrow to home on O2. CM to follow. D/C Plan: Likely home on O2. Date Signed: 04/22/2018 04:47 PM Electronically Signed By:Denice Joyner
[2018-04-22] MEDS: traZODone 100 MG TAB PO SCH ×2 (20:54→23:06)
[2018-04-23] MEDS: IPRATROPIUM/ALBUTEROL 3 ML DEYVIAL IH SCH ×2 (05:51→11:35)
[2018-04-23] MEDS: LEVOTHYROXINE 75 MCG TAB PO SCH (06:06)
[2018-04-23 08:00] VITALS: BP 139/72
[2018-04-23] MEDS: PROPRANOLOL HCL 10 MG TAB PO SCH (08:00)
[2018-04-23] MEDS: predniSONE 20 MG TAB PO SCH (08:00)
[2018-04-23] MEDS: SERTRALINE HCL 50 MG TAB PO SCH (08:01)
[2018-04-23] MEDS: CYANO/VITAMIN B12 1000 MCG TAB PO SCH (08:01)
[2018-04-23] MEDS: ENOXAPARIN 40 MG/0.4 ML SYR SC SCH (08:01)
[2018-04-23] MEDS: DOCUSATE SODIUM 100 MG CAP PO SCH (08:01)
[2018-04-23] MEDS: PANTOPRAZOLE SODIUM 40 MG TAB PO SCH (08:01)
[2018-04-23] MEDS: FLUTICASONE/SALMETER 500/50MCG DISKUS IH SCH (09:06)
--- NOTE | 2018-04-23 12:46 | PDDCSUM ---
Discharge Summary Discharge Summary: Date of Admission: 04/21/2018 Date of Discharge: 04/23/2018 Followup: PCP, [facility] Hospital Course Problem List: COPD with exacerbation (Acute) - Presented with SOB, cough, wheezing - Hx of COPD 2L NC, last exacerbation 12/2016, has required intubation in the past - CXR on admission showing no acute process - S/p 125 mg IV Solumedrol in ED, continued 60 mg q6hrs, switched to 40 mg Prednisone qd on 04/22 - S/p 750 mg Levaquin in ED, will continue, switched to PO prior to d/c - Will complete total 5 day course of Prednisone and Levaquin - Continue Duoneb PRN - 02 as needed, baseline 2L - Respiratory PCR and Flu negative on admission Acute Hypoxic Respiratory Failure - 02 sat 84% on 2L per report on admission - Significantly decreased breath sounds with wheezing on exam - Management of COPD exacerbation as above Hypothyroidism - Continue home Synthroid GERD - Continue home PPI Essential Tremor - Continue home Propranolol Time spent on discharge was >35 minutes with >50% of time spent on patient education and counseling.
--- NOTE | 2018-04-23 14:41 | ASDISCHSUM ---
Discharge Information Plan Status:Home with No Needs Medically Cleared to Leave:04/22/2018 Discharge Date:04/23/2018 12:00 PM CM D/C Disposition:Home, Routine, Self-Care ADT D/C Disposition:Home, Routine, Self-Care Projected Discharge Date:04/23/2018 12:00 PM Transportation at D/C:Family Discharge Delay Reason: Follow-Up Date:04/23/2018 12:00 PM Discharge Slot: Final Diagnosis: Placement Information Patient Contact Information Contact Name:ANTONIO Relationship:Life Partner Address:[address] [place] Alternate Phone: [facility]/Zip Code:[place] [address] Email: Financial Information Financial Class:Medicare Primary Plan Desc:MEDICARE INPATIENT Primary Plan Number:[id number] Secondary Plan Desc:[employer]/MDR SUPPLEMENT Secondary Plan Number:[id number] Assessment Information [facility] CM Progress Note CM Note CM Note Notes: CM chart review for discharge planning: Patient is 72 year old male who presented to [facility] ED, chief complaint: Shortness of Breath. productive cough. Past medical history includes COPD, continuous O2 @ 2L. essential tremors, asthma. Patient admitted and followed for COPD exacerbation. Per chart, possible discharge tomorrow to home on O2. CM to follow. D/C Plan: Likely home on O2. Date Signed: 04/22/2018 04:47 PM Electronically Signed By:Denice Joyner HANNAH HANNAH Length of stay for Answers: 2 days current admission Acuity / Level of Answers: Yes Care: Did the patient have an inpatient admission? Comorbidities - select Answers: Chronic pulmonary disease all that apply Other Notes: Hypothyroid; Essential tremor # of Emergency department Answers: 1-2 visits in the last 6 months Score: 9 Date Signed: 04/23/2018 02:39 PM Electronically Signed By:KATHLEEN Verde Case Management Discharge Plan Note Case Management Discharge Discharge Order Complete? Answers: Yes Patient to Obtain Answers: Independently Medications Transportation Arranged Answers: Family/Friends Discharge Comments Notes: Pt discharged home today with his partner and no CM needs. Date Signed: 04/23/2018 02:40 PM Electronically Signed By:KATHLEEN Verde Intervention Information Intervention Type:*IM-Signed Date of Service:04/23/2018 10:44 AM Patient Type:Inpatient Staff Member:Anjali Christie Hours: Discipline: Severity: Comment:
== END 2018-04-23 12:00 | disposition home or self-care (01) | DRG 190 ==
LOC: EDUNIT# → F3E 11:15
PROVIDERS: ADMIT Internal Medicine; ATTEND Internal Medicine
DX: J44.1 Chronic obstructive pulmonary disease with (acute) exacerbation (principal); J96.01 Acute respiratory failure with hypoxia; E86.9 Volume depletion, unspecified; E03.9 Hypothyroidism, unspecified; K21.9 Gastro-esophageal reflux disease without esophagitis; G25.0 Essential tremor; Z72.0 Tobacco use
CPT/HCPCS: 96365; 97116-GP; 97162-GP; 97166-GO; 97535-GO; J1650; J1956; J2930; J3475; J7512